=== PATIENT | female | born 1970 | race Caucasian/White ===

== ENCOUNTER 2020-04-21 13:34 | Emergency (ER) | payer MEDICAID ==
[~2020-04-21] VITALS: Ht 157.5 cm; Wt 113.2 kg
[~2020-04-21 13:34] MED LIST: FLUO20CA39 PO; TRAZ-256 PO; ZOLP5TAB8 PO
[2020-04-21 13:45] VITALS: BP 142/90
[2020-04-21] MEDS ORDERED: LORazepam 1 MG tablet PO ONE (13:55)
--- NOTE | 2020-04-21 14:03 | NUR ---
Remains in room with . Visably upset. Medicated.
[2020-04-21] MEDS ORDERED: LORA-269 PO (14:25)
== END 2020-04-21 14:49 | disposition home or self-care (01) ==
LOC: ER 13:35
DX: F41.9 Anxiety disorder, unspecified (principal); F32.9 Major depressive disorder, single episode, unspecified; Z90.49 Acquired absence of other specified parts of digestive tract; Z72.89 Other problems related to lifestyle; Z88.0 Allergy status to penicillin; Z88.2 Allergy status to sulfonamides; Z88.5 Allergy status to narcotic agent; Z79.899 Other long term (current) drug therapy
CPT/HCPCS: 99283

== ENCOUNTER 2020-05-01 07:37 | Day surgery (SDC) | payer MEDICAID ==
[2020-04-24 15:13] LABS: BASOPHILS % (AUTO) 0.1 % (0-1); EOSINOPHILS % (AUTO) 0 % (0-6); LYMPHOCYTES # (AUTO) 1.2 X10'3 (1.1-4.8); LYMPHOCYTES % (AUTO) 23.8 % (21-51); MEAN CORPUSCULAR HEMOGLOBIN 29.8 PG (27.0-31.0); MEAN CORPUSCULAR HGB CONC 33.6 g/dL (33.0-36.5); MEAN CORPUSCULAR VOLUME 88.6 FL (78-98); MEAN PLATELET VOLUME 7.4 FL (7.4-10.4); MONOCYTES # (AUTO) 0.3 X10'3 (0-0.9); NEUTROPHILS # (AUTO) 3.4 X10'3 (1.8-7.7); NEUTROPHILS % (AUTO) 69.1 % (42-75); PRE OP HEMOGLOBIN 13.5 g/dL (12.0-16.0); PRE OP PLATELET COUNT 211 X10'3 (140-440); RED BLOOD COUNT 4.52 X10'6 (4.20-5.60); RED CELL DISTRIBUTION WIDTH 14.9 % (11.5-14.5)
[2020-04-24 15:27] LABS: ALBUMIN 3.8 G/DL (3.4-5.0); ALBUMIN/GLOBULIN RATIO 1.7 (1.1-1.5); ALKALINE PHOSPHATASE 98 IU/L (46-116); BLOOD UREA NITROGEN 16 MG/DL (7-18); BUN/CREATININE RATIO 16.7 (6.6-38.0); CALCIUM 8.4 MG/DL (8.5-10.1); CHLORIDE 111 MMOL/L (99-107); CREATININE 0.96 MG/DL (0.40-0.90); PRE OP ALT 56 U/L (30-65); PRE OP ANION GAP 9 (8-16); PRE OP AST 30 U/L (10-37); PRE OP BILIRUB, TOTAL 0.5 MG/DL (0.0-1.0); PRE OP GLUCOSE 130 MG/DL (70-104); PRE OP POTASSIUM 3.7 MMOL/L (3.4-5.1); PRE OP SODIUM 145 MMOL/L (135-145); TOTAL CARBON DIOXIDE 25.5 MMOL/L (24-32); TOTAL PROTEIN 6.1 G/DL (6.4-8.2); eGFR 61 ML/MIN
[~2020-05-01] VITALS: Ht 157.5 cm; Wt 110.2 kg
[~2020-05-01 07:37] MED LIST changes: +ATOR10TA70 PO; +BUPIVAcaine/PF 2.5mg/ml (0.25%) 10ml vial ONE; +ESCI20TA45 PO; +ESTR1TAB28 PO; -FLUO20CA39 PO; +IBUP-1986 PO; +MEDR2.5T PO; +OMEP40CA13 PO; +TIOT4MIS5 PO; -ZOLP5TAB8 PO; +albuterol 2.5 MG/3 ML nebule NEB ONE; +ceFAZolin 2gm in dextrose, iso 50 ML IV ONE; +famotidine 20mg tablet PO ONE; +ringers solution, lacted 1,000 ML IV SCH
[2020-05-01 08:00] VITALS: BP 121/76
[2020-05-01] MEDS ORDERED: fentaNYL/PF 50MCG/1 ML 2ML syringe ONE ×2 (08:54→09:10)
[2020-05-01] MEDS ORDERED: midazolam 2 mg/2 ml injection ONE (08:55)
[2020-05-01] MEDS ORDERED: LIDOcaine 0.5% (5mg/ml) 50ml vial ONE (08:57)
[2020-05-01 09:25] VITALS: BP 122/72
[2020-05-01 09:35] VITALS: BP 128/70
[2020-05-01 09:45] VITALS: BP 132/68
--- NOTE | 2020-05-01 09:55 | NUR ---
PATIENT HAS MET ALL DC CRITERIA FOR DC HOME. I HAVE REVIEWED D/C INSTRUCTIONS WITH PATIENT AND FAMILY AND THEY HAVE VERBALIZED UNDERSTANDING, OPPORTUNITY TO ASK QUESTIONS GIVEN AND PATIENT COMFORTABLE WITH DC. IV TAKEN OUT WITHOUT COMPLICATION. OUT VIA WHEELCHAIR WHERE PATIENT WAS TAKEN HOME WITH ALL BELONGINGS. FAMILY GAVE PATIENT TRANSPORT HOME. RIGHT RING FINGER IS CDI. DENIES PAIN. Addendum: 05/01/20 at 1000 by Dick Blount RN, RN Amended: Links added.
== END 2020-05-01 09:55 | disposition home or self-care (01) ==
LOC: PAS 07:37
PROVIDERS: ATTEND Orthopaedic Surgery Hand Surgery
DX: D21.11 Benign neoplasm of connective and other soft tissue of right upper limb, including shoulder (principal); G47.33 Obstructive sleep apnea (adult) (pediatric); F41.9 Anxiety disorder, unspecified; F32.9 Major depressive disorder, single episode, unspecified; J45.909 Unspecified asthma, uncomplicated; E66.9 Obesity, unspecified; Z68.41 Body mass index [BMI] 40.0-44.9, adult; Z90.49 Acquired absence of other specified parts of digestive tract; Z98.890 Other specified postprocedural states; Z88.0 Allergy status to penicillin; Z88.2 Allergy status to sulfonamides; Z88.5 Allergy status to narcotic agent; Z11.59 Encounter for screening for other viral diseases; Z79.899 Other long term (current) drug therapy; Z87.891 Personal history of nicotine dependence
CPT/HCPCS: 26116; 36415; 80053; 82948; 85025; 93005; J2001; J2250; J3010; J3490; J7120; U0003; A4215; A4618; A7000

== ENCOUNTER 2021-09-08 10:18 | Emergency (ER) | payer MEDICAID ==
[~2021-09-08] VITALS: Ht 157.5 cm; Wt 95.4 kg
[~2021-09-08 10:18] MED LIST changes: -BUPIVAcaine/PF 2.5mg/ml (0.25%) 10ml vial ONE; +ESCI20TA39 PO; -ESCI20TA45 PO; -OMEP40CA13 PO; +OMEP40CA21 PO; -albuterol 2.5 MG/3 ML nebule NEB ONE; -ceFAZolin 2gm in dextrose, iso 50 ML IV ONE; -famotidine 20mg tablet PO ONE; -ringers solution, lacted 1,000 ML IV SCH
[2021-09-08] MEDS ORDERED: normal saline 1000ML IV soln IV ONE (11:10)
[2021-09-08] MEDS ORDERED: levoFLOXACIN-Levaquin 750MG/D5 150 ML IV ONE (11:20)
[2021-09-08 11:40] LABS: BASOPHILS % (AUTO) 0.1 % (0-1); EOSINOPHILS % (AUTO) 0 % (0-6); HEMATOCRIT 38.9 % (35.0-45.0); HEMOGLOBIN 12.6 g/dl (12.0-16.0); LYMPHOCYTES # (AUTO) 0.9 X10'3 (1.1-4.8); LYMPHOCYTES % (AUTO) 8.3 % (21-51); MEAN CORPUSCULAR HEMOGLOBIN 24.8 PG (27.0-31.0); MEAN CORPUSCULAR HGB CONC 32.4 g/dL (33.0-36.5); MEAN CORPUSCULAR VOLUME 76.6 FL (78-98); MEAN PLATELET VOLUME 6.9 FL (7.4-10.4); MONOCYTES # (AUTO) 0.5 X10'3 (0-0.9); MONOCYTES % (AUTO) 4.5 % (2-12); NEUTROPHILS # (AUTO) 9.5 X10'3 (1.8-7.7); NEUTROPHILS % (AUTO) 87.1 % (42-75); PLATELET COUNT 307 X10'3 (140-440); RED BLOOD COUNT 5.08 X10'6 (4.20-5.60); RED CELL DISTRIBUTION WIDTH 17.5 % (11.5-14.5); WHITE BLOOD COUNT 10.9 X10'3 (4.5-11.0)
[2021-09-08] MEDS ORDERED: ketorolac trometh. 30mg/ml inj. IV ONE (12:00)
[2021-09-08] MEDS ORDERED: ipratropium/albuterol 3ml nebule NEB ONE (12:00)
[2021-09-08] MEDS ORDERED: methylPREDNISolone sod succ 125mg/2ml vial IV ONE (12:00)
[2021-09-08] MEDS ORDERED: acetaminophen 325mg tablet PO ONE (12:00)
[2021-09-08 12:05] LABS: ALANINE AMINOTRANSFERASE 30 U/L (12-78); ALBUMIN 3.6 G/DL (3.4-5.0); ALKALINE PHOSPHATASE 162 IU/L (46-116); ANION GAP 10 (8-16); ASPARTATE AMINO TRANSFERASE 12 U/L (10-37); BILIRUBIN,TOTAL 0.7 MG/DL (0.1-1.0); BLOOD UREA NITROGEN 7 MG/DL (7-18); CHLORIDE 99 MMOL/L (99-107); CREATININE 0.78 MG/DL (0.40-0.90); GLUCOSE 123 MG/DL (70-104); POTASSIUM 3.3 MMOL/L (3.5-5.1); SODIUM 134 MMOL/L (135-145); TOTAL CARBON DIOXIDE 25.4 MMOL/L (24-32); TOTAL PROTEIN 7.1 G/DL (6.4-8.2); eGFR 77 ML/MIN
[2021-09-08] MEDS ORDERED: PRED10TA23 PO (12:53)
[2021-09-08] MEDS ORDERED: LEVO500T90 PO (12:53)
[2021-09-08] MEDS ORDERED: ALBU6.7H9 INH (12:53)
[2021-09-08] MEDS ORDERED: GUAI1TBM19 PO (12:53)
[2021-09-08 14:14] VITALS: BP 120/71
== END 2021-09-08 14:16 | disposition home or self-care (01) ==
LOC: ER 10:18
DX: J18.9 Pneumonia, unspecified organism (principal); Z20.822 Contact with and (suspected) exposure to COVID-19; R51.9 Headache, unspecified; R53.1 Weakness; R50.9 Fever, unspecified; R06.02 Shortness of breath; R05.9 Cough, unspecified; J45.909 Unspecified asthma, uncomplicated; F32.9 Major depressive disorder, single episode, unspecified; Z87.01 Personal history of pneumonia (recurrent); Z90.49 Acquired absence of other specified parts of digestive tract; Z72.89 Other problems related to lifestyle; Z88.0 Allergy status to penicillin; Z88.2 Allergy status to sulfonamides; Z88.5 Allergy status to narcotic agent; Z79.2 Long term (current) use of antibiotics; Z79.899 Other long term (current) drug therapy
CPT/HCPCS: 36415; 71045; 80053; 83605; 84145; 85025; 87040; 87502; 87503; 87635; 93005; 94640; 96361; 96365; 96375; 99285; C9803; J1885; J1956; J2930; J7030; 94760

== ENCOUNTER 2022-02-26 13:23 | Emergency (ER) | payer MEDICAID ==
[~2022-02-26] VITALS: Ht 167.6 cm; Wt 99.0 kg
[~2022-02-26 13:23] MED LIST changes: +ALBU6.7H9 INH; +GUAI1TBM19 PO
[2022-02-26 13:42] VITALS: BP 116/89
== END 2022-02-26 14:27 | disposition home or self-care (01) ==
LOC: ER 13:25
DX: U07.1 COVID-19 (principal); J45.909 Unspecified asthma, uncomplicated; F32.9 Major depressive disorder, single episode, unspecified; Z90.49 Acquired absence of other specified parts of digestive tract; Z72.89 Other problems related to lifestyle; Z88.0 Allergy status to penicillin; Z88.2 Allergy status to sulfonamides; Z88.5 Allergy status to narcotic agent; Z79.899 Other long term (current) drug therapy
CPT/HCPCS: 99281

== ENCOUNTER 2022-03-03 02:45 | Emergency (ER) | payer MEDICAID | END 2022-03-03 03:53 | disposition left against medical advice (07) | LOC: ER 02:46 | DX: Z00.8 Encounter for other general examination (principal); Z53.21 Procedure and treatment not carried out due to patient leaving prior to being seen by health care provider ==

== ENCOUNTER 2024-10-18 12:52 | Emergency (ER) | payer MEDICAID ==
[~2024-10-18] VITALS: Ht 157.5 cm; Wt 74.1 kg
[~2024-10-18 12:52] MED LIST changes: +ALBU6.7H14 INH; -ALBU6.7H9 INH
[2024-10-18 12:55] VITALS: TEMP 98
[2024-10-18 13:23] LABS: BASOPHILS % (AUTO) 0.1 % (0-1); EOSINOPHILS % (AUTO) 0 % (0-6); HEMATOCRIT 41.1 % (35.0-45.0); LYMPHOCYTES % (AUTO) 9.2 % (21-51); MEAN CORPUSCULAR HEMOGLOBIN 30.9 PG (27.0-31.0); MEAN CORPUSCULAR VOLUME 90.9 FL (78-98); MEAN PLATELET VOLUME 6.6 FL (7.4-10.4); MONOCYTES # (AUTO) 0.7 X10'3 (0-0.9); NEUTROPHILS # (AUTO) 9.2 X10'3 (1.8-7.7); NEUTROPHILS % (AUTO) 84.7 % (42-75); PLATELET COUNT 235 X10'3 (140-440); RED BLOOD COUNT 4.52 X10'6 (4.20-5.60); RED CELL DISTRIBUTION WIDTH 13.5 % (11.5-14.5); WHITE BLOOD COUNT 10.9 X10'3 (4.5-11.0)
[2024-10-18 13:27] LABS: ALBUMIN 3.8 G/DL (3.4-5.0); ANION GAP 7 (8-16); BLOOD UREA NITROGEN 11 MG/DL (7-18); BUN/CREATININE RATIO 18.6 (10.0-20.0); CALCIUM 9.2 MG/DL (8.5-10.1); CHLORIDE 102 MMOL/L (99-107); CREATININE 0.59 MG/DL (0.40-0.90); GLUCOSE 98 MG/DL (70-104); POTASSIUM 3.4 MMOL/L (3.5-5.1); SODIUM 139 MMOL/L (135-145); TOTAL CARBON DIOXIDE 29.9 MMOL/L (24-32); eCRCL 84 ML/MIN; eGFR > 90 ML/MIN
[2024-10-18] MEDS: ondansetron 4mg rapidly disintigrating tab PO ONE (16:09)
[2024-10-18] MEDS: ketorolac trometh 15mg/ml vial 15 MG/ML ML IM ONE (16:09)
[2024-10-18 17:48] VITALS: BP 130/68; PULSE 95; O2SAT 98
[2024-10-18 18:11] VITALS: RESP 18
== END 2024-10-18 18:22 | disposition home or self-care (01) ==
LOC: ER 12:53
DX: M54.6 Pain in thoracic spine (principal); J45.909 Unspecified asthma, uncomplicated; F32.A Depression, unspecified; Z88.0 Allergy status to penicillin; Z88.2 Allergy status to sulfonamides; Z88.5 Allergy status to narcotic agent; Z90.49 Acquired absence of other specified parts of digestive tract; Z79.899 Other long term (current) drug therapy
CPT/HCPCS: 36415; 71046; 80048; 85025; 93005; 96372; 99285; J1885

== ENCOUNTER 2024-10-30 17:22 | Inpatient (IN) | payer MEDICAID ==
[~2024-10-30] VITALS: Ht 157.5 cm; Wt 75.0 kg
[2024-10-30] MEDS: LIDOcaine 5% patch TP STA (22:20)
[2024-10-30] MEDS: ketorolac trometh 15mg/ml vial 15 MG/ML ML IM ONE (22:21)
[2024-10-30] MEDS: CefTRIAXone/D5W-Rocephin 1gm 50 ML IV ONE (22:40)
[2024-10-30] MEDS: normal saline 1000ml 1,000 ML IV ONE (22:40)
[2024-10-30] MEDS: azithromycin 250mg tablet PO ONE (22:40)
[2024-10-30 23:09] LABS: BASOPHILS % (AUTO) 0.1 % (0-1); EOSINOPHILS % (AUTO) 0 % (0-6); HEMATOCRIT 38.3 % (35.0-45.0); HEMOGLOBIN 13.1 g/dl (12.0-16.0); LYMPHOCYTES # (AUTO) 1.1 X10'3 (1.1-4.8); MEAN CORPUSCULAR HEMOGLOBIN 30.9 PG (27.0-31.0); MEAN CORPUSCULAR HGB CONC 34.1 g/dL (33.0-36.5); MEAN CORPUSCULAR VOLUME 90.5 FL (78-98); MEAN PLATELET VOLUME 6.6 FL (7.4-10.4); MONOCYTES # (AUTO) 0.5 X10'3 (0-0.9); MONOCYTES % (AUTO) 4.7 % (2-12); NEUTROPHILS # (AUTO) 9.3 X10'3 (1.8-7.7); NEUTROPHILS % (AUTO) 85.2 % (42-75); PLATELET COUNT 370 X10'3 (140-440); RED BLOOD COUNT 4.23 X10'6 (4.20-5.60); RED CELL DISTRIBUTION WIDTH 13.8 % (11.5-14.5); WHITE BLOOD COUNT 10.9 X10'3 (4.5-11.0)
[2024-10-30 23:16] LABS: ALBUMIN 2.8 G/DL (3.4-5.0); ANION GAP 11 (8-16); BLOOD UREA NITROGEN 13 MG/DL (7-18); BUN/CREATININE RATIO 17.8 (10.0-20.0); CALCIUM 9.3 MG/DL (8.5-10.1); CHLORIDE 96 MMOL/L (99-107); CREATININE 0.73 MG/DL (0.40-0.90); GLUCOSE 110 MG/DL (70-104); MAGNESIUM 1.7 MG/DL (1.5-2.4); POTASSIUM 3.9 MMOL/L (3.5-5.1); SODIUM 133 MMOL/L (135-145); TOTAL CARBON DIOXIDE 26.4 MMOL/L (24-32); eCRCL 68 ML/MIN; eGFR 82 ML/MIN
[2024-10-30] MEDS ORDERED: magnesium sulf-water 4G/100mL 100 ML IV PRN (23:40)
[2024-10-30] MEDS ORDERED: magnesium Cl slow-release 64mg tablet PO PRN (23:40)
[2024-10-30] MEDS ORDERED: magnesium hydroxide 30ml (MOM) UD suspension PO PRN (23:40)
[2024-10-30] MEDS ORDERED: potassium Cl 20 mEq SR tablet PO PRN ×2 (23:40)
[2024-10-30] MEDS ORDERED: ondansetron/PF 4mg/2ml inj IV PRN (23:40)
[2024-10-30] MEDS ORDERED: morphine 2 MG/ML inj. syringe IV PRN (23:40)
[2024-10-30] MEDS ORDERED: potassium Cl 40MEQ/1/2NS 520ml 520 ML IV PRN (23:40)
[2024-10-30] MEDS ORDERED: magnesium sulf-water 2g/50mL 50 ML IV PRN (23:40)
[2024-10-30] MEDS ORDERED: mag hydrox/Alum hydrox/simeth 30ml oral suspension PO PRN (23:40)
[2024-10-30] MEDS: normal saline 1000ml 1,000 ML IV SCH (23:53)
[2024-10-31] VITALS (11 sets, daily range): BP systolic 122–138; BP diastolic 62–89; PULSE 87–103; RESP 13–18; TEMP 97–98.9; O2SAT 93–94
[2024-10-31] MEDS: morphine 2 MG/ML inj. syringe IV PRN (01:16)
[2024-10-31 01:33] LABS: URINE HCG NEGATIVE (NEG)
[2024-10-31 01:45] LABS: BILIRUBIN,URINE NEGATIVE (Neg); CLARITY,URINE SLIGHTLY CLOUDY (Clear); COLOR,URINE YELLOW (Yellow); GLUCOSE, URINE NEGATIVE (Neg); KETONES,URINE NEGATIVE (Neg); LEUKOCYTE ESTERASE ,URINE TRACE (Neg); NITRITES, URINE POSITIVE (Neg); OCCULT BLOOD,URINE NEGATIVE (Neg); PROTEIN,URINE 30 mg/dl (Neg); UROBILINOGEN,URINE 0.2 E.U/dL (0.2-1.0)
[2024-10-31 01:51] LABS: UA COLLECTION TYPE CLN CATCH MIDSTREAM
[2024-10-31 01:52] LABS: BACTERIA,URINE 4+ /HPF (Neg); RBC,URINE NONE SEEN /HPF (0-2); SQUAMOUS EPITHELIAL CELL,UR FEW /LPF (FEW)
[2024-10-31 03:06] LABS: BASOPHILS % (AUTO) 0 % (0-1); EOSINOPHILS % (AUTO) 0 % (0-6); HEMOGLOBIN 10.9 g/dl (12.0-16.0); LYMPHOCYTES # (AUTO) 1.1 X10'3 (1.1-4.8); LYMPHOCYTES % (AUTO) 11.8 % (21-51); MEAN CORPUSCULAR HEMOGLOBIN 31.1 PG (27.0-31.0); MEAN CORPUSCULAR HGB CONC 34.1 g/dL (33.0-36.5); MEAN CORPUSCULAR VOLUME 91.3 FL (78-98); MEAN PLATELET VOLUME 6.7 FL (7.4-10.4); MONOCYTES # (AUTO) 0.6 X10'3 (0-0.9); NEUTROPHILS # (AUTO) 7.4 X10'3 (1.8-7.7); NEUTROPHILS % (AUTO) 81.2 % (42-75); PLATELET COUNT 307 X10'3 (140-440); RED CELL DISTRIBUTION WIDTH 13.7 % (11.5-14.5); WHITE BLOOD COUNT 9.1 X10'3 (4.5-11.0)
[2024-10-31 03:27] LABS: ALANINE AMINOTRANSFERASE 13 U/L (12-78); ALBUMIN 2.1 G/DL (3.4-5.0); ALBUMIN/GLOBULIN RATIO 0.6 (1.1-1.5); ALKALINE PHOSPHATASE 184 IU/L (46-116); ANION GAP 6 (8-16); ASPARTATE AMINO TRANSFERASE 13 U/L (10-37); BILIRUBIN,TOTAL 0.4 MG/DL (0.1-1.0); BLOOD UREA NITROGEN 15 MG/DL (7-18); BUN/CREATININE RATIO 19.5 (10.0-20.0); CALCIUM 8.3 MG/DL (8.5-10.1); CHLORIDE 102 MMOL/L (99-107); CREATININE 0.77 MG/DL (0.40-0.90); GLUCOSE 106 MG/DL (70-104); MAGNESIUM 1.7 MG/DL (1.5-2.4); POTASSIUM 3.9 MMOL/L (3.5-5.1); SODIUM 135 MMOL/L (135-145); TOTAL CARBON DIOXIDE 27.5 MMOL/L (24-32); TOTAL PROTEIN 5.4 G/DL (6.4-8.2); eCRCL 65 ML/MIN; eGFR 78 ML/MIN
[2024-10-31] MEDS ORDERED: GABA-530 PO (04:29)
[2024-10-31] MEDS: methylPREDNISolone sod succ 125mg/2ml vial IV ONE (05:53)
[2024-10-31] MEDS: K and/or MAG REPLACEMENT MC SCH (08:00)
[2024-10-31] MEDS: atorvastatin 10mg tablet PO SCH (08:00)
[2024-10-31] MEDS: docusate sod 100mg capsule PO SCH (08:00)
[2024-10-31] MEDS ORDERED: albuterol 2.5 MG/3 ML nebule NEB PRN (08:10)
[2024-10-31] MEDS: lactobacillus rhamnosus 10,000 MMU CELLS/CAPSULE PO SCH (08:31)
[2024-10-31] MEDS: gabapentin 100mg capsule PO SCH (08:31)
[2024-10-31] MEDS: azithromycin 250mg tablet PO SCH (08:32)
[2024-10-31] MEDS: pantoprazole 40mg Tablet.DR PO SCH (08:34)
[2024-10-31] MEDS: methylPREDNISolone sod succ/PF 40mg inj. IV SCH (08:36)
[2024-10-31] MEDS: heparin, porcine 5000 units/ml vial SQ SCH (08:39)
[2024-10-31] MEDS: ipratropium/albuterol 3ml nebule NEB PRN (16:11)
[2024-10-31] MEDS: acetaminophen 325mg tablet PO PRN (20:05)
[2024-10-31] MEDS: ESCITALOPRAM 10 mg tablet 10 MG TABLET PO SCH (20:05)
[2024-10-31] MEDS: benzonatate 100mg capsule PO PRN (20:06)
[2024-10-31] MEDS: ipratropium/albuterol 3ml nebule NEB SCH (20:57)
[2024-10-31] MEDS: estradiol 1mg tablet PO SCH (21:00)
[2024-10-31] MEDS: traZODone 50mg tablet PO SCH (22:10)
[2024-10-31] MEDS: CefTRIAXone/D5W-Rocephin 1gm 50 ML IV SCH (22:40)
[2024-11-01] VITALS (16 sets, daily range): BP systolic 125–147; BP diastolic 68–85; PULSE 80–108; RESP 16–18; TEMP 97.7–98.2; O2SAT 91–96
[2024-11-01 07:35] LABS: BASOPHILS % (AUTO) 0 % (0-1); EOSINOPHILS % (AUTO) 0 % (0-6); HEMATOCRIT 31.2 % (35.0-45.0); HEMOGLOBIN 10.4 g/dl (12.0-16.0); LYMPHOCYTES # (AUTO) 0.5 X10'3 (1.1-4.8); MEAN CORPUSCULAR HEMOGLOBIN 30.5 PG (27.0-31.0); MEAN CORPUSCULAR HGB CONC 33.3 g/dL (33.0-36.5); MEAN CORPUSCULAR VOLUME 91.5 FL (78-98); MEAN PLATELET VOLUME 6.9 FL (7.4-10.4); MONOCYTES # (AUTO) 0.2 X10'3 (0-0.9); MONOCYTES % (AUTO) 5.2 % (2-12); NEUTROPHILS # (AUTO) 3.9 X10'3 (1.8-7.7); NEUTROPHILS % (AUTO) 84.8 % (42-75); PLATELET COUNT 279 X10'3 (140-440); RED BLOOD COUNT 3.41 X10'6 (4.20-5.60); RED CELL DISTRIBUTION WIDTH 13.4 % (11.5-14.5); WHITE BLOOD COUNT 4.6 X10'3 (4.5-11.0)
[2024-11-01 08:10] LABS: ALANINE AMINOTRANSFERASE 17 U/L (12-78); ALBUMIN 2.2 G/DL (3.4-5.0); ALBUMIN/GLOBULIN RATIO 0.7 (1.1-1.5); ALKALINE PHOSPHATASE 168 IU/L (46-116); ANION GAP 9 (8-16); ASPARTATE AMINO TRANSFERASE 4 U/L (10-37); BILIRUBIN,TOTAL 0.2 MG/DL (0.1-1.0); BLOOD UREA NITROGEN 15 MG/DL (7-18); BUN/CREATININE RATIO 19.7 (10.0-20.0); CALCIUM 8.9 MG/DL (8.5-10.1); CHLORIDE 107 MMOL/L (99-107); CREATININE 0.76 MG/DL (0.40-0.90); GLUCOSE 392 MG/DL (70-104); MAGNESIUM 1.9 MG/DL (1.5-2.4); POTASSIUM 4.8 MMOL/L (3.5-5.1); SODIUM 142 MMOL/L (135-145); TOTAL CARBON DIOXIDE 26.1 MMOL/L (24-32); TOTAL PROTEIN 5.4 G/DL (6.4-8.2); eCRCL 65 ML/MIN; eGFR 79 ML/MIN
[2024-11-01] MEDS ORDERED: glucagon, human recombinant 1mg kit SUBCUT PRN (08:50)
[2024-11-01] MEDS ORDERED: DEXTROSE 15 GM of carb/4 tabs (each vial/BOTTLE has 4 tablets) PO PRN ×4 (08:50→14:05)
[2024-11-01] MEDS ORDERED: dextrose 50%-water 50ml dispensing syringe IV PRN ×4 (08:50→14:05)
[2024-11-01 09:26] LABS: HEMOGLOBIN A1C 5.2 % (4.5-6.2)
[2024-11-01] MEDS ORDERED: INSULIN LISPRO 100 UNIT/ML INSULN.PEN MULTI-DOSE SQ SCH (12:00)
[2024-11-01] MEDS: lactose-reduced food (Ensure Enlive) - 237ml bottle PO SCH (13:55)
[2024-11-01] MEDS: methylPREDNISolone sod succ/PF 40mg inj. IV SCH (13:55)
[2024-11-01] MEDS: INSULIN LISPRO 100 UNIT/ML INSULN.PEN MULTI-DOSE SQ SCH ×3 (17:00→18:00)
[2024-11-01] MEDS: acetaminophen 325mg tablet PO PRN (19:51)
[2024-11-01] MEDS: insulin glargine (Lantus) pen - multi-dose SQ SCH (20:42)
[2024-11-01] MEDS ORDERED: insulin glargine (Lantus) pen - multi-dose SQ SCH (21:00)
[2024-11-02] VITALS (8 sets, daily range): BP systolic 125; BP diastolic 64; PULSE 59–108; RESP 16; TEMP 98.2; O2SAT 92–96
[2024-11-02] MEDS: methylPREDNISolone sod succ/PF 40mg inj. IV SCH (03:39)
[2024-11-02 06:31] LABS: BASOPHILS % (AUTO) 0 % (0-1); EOSINOPHILS % (AUTO) 0 % (0-6); HEMATOCRIT 31.3 % (35.0-45.0); HEMOGLOBIN 10.6 g/dl (12.0-16.0); LYMPHOCYTES # (AUTO) 0.7 X10'3 (1.1-4.8); LYMPHOCYTES % (AUTO) 10.6 % (21-51); MEAN CORPUSCULAR HEMOGLOBIN 30.8 PG (27.0-31.0); MEAN CORPUSCULAR HGB CONC 33.8 g/dL (33.0-36.5); MEAN CORPUSCULAR VOLUME 91.2 FL (78-98); MEAN PLATELET VOLUME 6.7 FL (7.4-10.4); MONOCYTES # (AUTO) 0.3 X10'3 (0-0.9); NEUTROPHILS # (AUTO) 5.4 X10'3 (1.8-7.7); NEUTROPHILS % (AUTO) 84.4 % (42-75); PLATELET COUNT 309 X10'3 (140-440); RED BLOOD COUNT 3.43 X10'6 (4.20-5.60); RED CELL DISTRIBUTION WIDTH 13.5 % (11.5-14.5); WHITE BLOOD COUNT 6.4 X10'3 (4.5-11.0)
[2024-11-02 06:56] LABS: ALANINE AMINOTRANSFERASE 26 U/L (12-78); ALBUMIN 2.4 G/DL (3.4-5.0); ALBUMIN/GLOBULIN RATIO 0.9 (1.1-1.5); ALKALINE PHOSPHATASE 163 IU/L (46-116); ANION GAP 11 (8-16); ASPARTATE AMINO TRANSFERASE 18 U/L (10-37); BILIRUBIN,TOTAL 0.2 MG/DL (0.1-1.0); BLOOD UREA NITROGEN 24 MG/DL (7-18); BUN/CREATININE RATIO 30.4 (10.0-20.0); CALCIUM 8.9 MG/DL (8.5-10.1); CHLORIDE 108 MMOL/L (99-107); CREATININE 0.79 MG/DL (0.40-0.90); GLUCOSE 244 MG/DL (70-104); MAGNESIUM 1.9 MG/DL (1.5-2.4); POTASSIUM 4.2 MMOL/L (3.5-5.1); SODIUM 143 MMOL/L (135-145); TOTAL CARBON DIOXIDE 24.2 MMOL/L (24-32); TOTAL PROTEIN 5.1 G/DL (6.4-8.2); eCRCL 63 ML/MIN; eGFR 75 ML/MIN
[2024-11-02] MEDS: INSULIN LISPRO 100 UNIT/ML INSULN.PEN MULTI-DOSE SQ SCH (07:30)
[2024-11-02] MEDS ORDERED: PRED10TA23 PO (10:51)
[2024-11-02] MEDS ORDERED: CEFD300C3 PO (10:51)
[2024-11-02] MEDS ORDERED: LACT1CAP26 PO (10:51)
[2024-11-02] MEDS ORDERED: INSULIN LISPRO 100 UNIT/ML INSULN.PEN MULTI-DOSE SQ SCH (12:30)
== END 2024-11-02 11:50 | disposition home or self-care (01) | DRG 137 ==
LOC: ER 17:23 → ED HOLD 23:40 → ORTHO 4S 10-31 13:10
PROVIDERS: ADMIT Specialist; ATTEND Family Medicine
DX: J15.69 Pneumonia due to other Gram-negative bacteria (principal); E44.0 Moderate protein-calorie malnutrition; F32.A Depression, unspecified; J45.909 Unspecified asthma, uncomplicated; Z68.30 Body mass index [BMI] 30.0-30.9, adult; Z20.822 Contact with and (suspected) exposure to COVID-19; J15.9 Unspecified bacterial pneumonia; N39.0 Urinary tract infection, site not specified; Z88.0 Allergy status to penicillin; Z88.5 Allergy status to narcotic agent; Z88.2 Allergy status to sulfonamides; Z90.49 Acquired absence of other specified parts of digestive tract; Z87.891 Personal history of nicotine dependence
CPT/HCPCS: 36415; 71045; 71250; 76604; 80048; 80053; 81001; 81025; 82948; 83036; 83605; 83735; 84145; 85025; 87040; 87077; 87081; 87088; 87186; 87502; 87503; 87811; 93005; 94640; 94760; 99285; A4615; G0378; J0696; J1644; J1815; J1885; J2270; J2919; J7030